=== PATIENT | female | born 1995 | race Two or more races ===

== ENCOUNTER 2017-07-24 10:38 | Emergency (ER) | payer SELFPAY, MEDICAID | END 2017-07-24 12:01 | disposition home or self-care (01) | LOC: ER 10:38 | DX: O26.891 Other specified pregnancy related conditions, first trimester (principal); M54.9 Dorsalgia, unspecified; M54.2 Cervicalgia; Z3A.01 Less than 8 weeks gestation of pregnancy | CPT/HCPCS: 99281 ==

== ENCOUNTER 2017-09-09 21:25 | Emergency (ER) | payer OTHER ==
[2017-09-09 21:58] LABS: URINE HCG POC HCG POSITIVE (Negative)
[2017-09-09 22:46] LABS: ADD MAN DIFF? NO
[2017-09-09 22:48] LABS: BASO % 0 % (0-3); EOS % 0 % (0-3); HEMATOCRIT 38.2 % (36.0-47.0); HEMOGLOBIN 13.2 g/dL (12.0-15.5); LYMPH % 21 % (24-48); MEAN CORPUSCULAR HEMOGLOBIN 31 pg (25-35); MEAN CORPUSCULAR HGB CONC 35 g/dL (31-37); MEAN CORPUSCULAR VOLUME 89 fL (79-100); MONO # 0.6 x10^3/uL (0.0-1.1); MONO % 6 % (0-9); NEUT # 6.7 x10^3uL (1.8-7.7); NEUT % 72 % (31-73); PLATELET COUNT 277 x10^3/uL (140-400); RED BLOOD COUNT 4.29 x10^6/uL (3.50-5.40); RED CELL DISTRIBUTION WIDTH 14.2 % (11.5-14.5); WHITE BLOOD COUNT 9.3 x10^3/uL (4.0-11.0)
[2017-09-09 22:49] LABS: BILIRUBIN,URINE NEGATIVE (NEG); CLARITY,URINE CLOUDY; COLOR,URINE YELLOW; GLUCOSE,URINE NEGATIVE (NEG); NITRITE,URINE NEGATIVE (NEG); PROTEIN,URINE NEGATIVE (NEG-TRACE)
[2017-09-09 22:57] LABS: BACTERIA,URINE MANY /HPF (0-FEW); RBC,URINE 0 /HPF (0-2); SQUAMOUS EPITHELIAL CELL,UR MANY /LPF
[2017-09-09 23:02] LABS: ANION GAP 14 (6-14); BLOOD UREA NITROGEN 10 mg/dL (7-20); BUN/CREATININE RATIO 20 (6-20); CALCIUM 8.9 mg/dL (8.5-10.1); CARBON DIOXIDE 22 mmol/L (21-32); CHLORIDE 103 mmol/L (98-107); CREATININE 0.5 mg/dL (0.6-1.0); GFR 154.3; GLUCOSE 87 mg/dL (70-99); POTASSIUM 3.2 mmol/L (3.5-5.1); SODIUM 139 mmol/L (136-145)
[2017-09-09] MEDS: IV NORMAL SALINE 1000ML BAG 1,000 ML IV (23:05)
[2017-09-09] MEDS: ONDANSETRON PF 4 MG/2 ML VIAL. IV (23:05)
[2017-09-09 23:07] LABS: ALBUMIN 3.6 g/dL (3.4-5.0); ALBUMIN/GLOBULIN RATIO 0.8 (1.0-1.7); ALK PHOS 65 U/L (46-116); ALT (SGPT) 15 U/L (14-59); AST (SGOT) 10 U/L (15-37); TOTAL BILIRUBIN 0.6 mg/dL (0.2-1.0); TOTAL PROTEIN 8.3 g/dL (6.4-8.2)
[2017-09-09] MEDS: POTASSIUM CHLORIDE 20 MEQ TABLET.ER. PO (23:48)
[2017-09-09] MEDS: ACETAMINOPHEN 500 MG TABLET PO (23:49)
== END 2017-09-09 23:50 | disposition home or self-care (01) ==
LOC: ER 23:50
DX: O99.281 Endocrine, nutritional and metabolic diseases complicating pregnancy, first trimester (principal); O23.41 Unspecified infection of urinary tract in pregnancy, first trimester; R42 Dizziness and giddiness; E86.0 Dehydration; Z3A.13 13 weeks gestation of pregnancy
CPT/HCPCS: 36415; 80053; 81001; 81025; 85025; 87086; 96361; 96374; 99284; J2405; J7030

== ENCOUNTER 2018-08-06 02:32 | Emergency (ER) | payer SELFPAY ==
[~2018-08-06] VITALS: Ht 162.6 cm; Wt 99.8 kg
[~2018-08-06 02:32] MED LIST: CEPH500T PO; IBUP-1060 PO; NAPR-514 PO; OXYC1TAB15 PO; PNV1TABL25 PO; SULF1TAB24 PO
[2018-08-06 02:45] VITALS: BP 112/69
[2018-08-07] MEDS ORDERED: NEOM10DR32 RIGHT EAR (10:26)
== END 2018-08-06 04:22 | disposition left against medical advice (07) ==
LOC: ER 02:32
DX: H92.01 Otalgia, right ear (principal); Z53.21 Procedure and treatment not carried out due to patient leaving prior to being seen by health care provider

== ENCOUNTER 2018-08-07 09:27 | Emergency (ER) | payer SELFPAY ==
[~2018-08-07] VITALS: Ht 160 cm; Wt 97.5 kg
[2018-08-07 09:37] VITALS: BP 116/65
--- NOTE | 2018-08-07 10:01 | PHYS DOC ---
Past Medical History Past Medical History: No Pertinent History Past Surgical History: Alcohol Use: None Drug Use: None Adult General Chief Complaint Chief Complaint: EARACHE/EAR PAIN HPI HPI Patient is a 22 year old female who presents with right ear pain. The pain is located in her right ear and started a few days ago. She describes it as a throbbing sensation. She attempted to vinegar on a cottonball to relieve her ear pain with no success. Chewing makes her pain worse. Improves her pain. She denies any fever, chills, sinus pressure, headache, ear drainage, or hearing loss. Review of Systems Review of Systems Constitutional: Denies fever or chills Eyes: Denies change in visual acuity, redness, or eye pain HENT: Reports right ear pain. Denies nasal congestion or sore throat Respiratory: Denies cough or shortness of breath Cardiovascular: Denies chest pain or palpitations. GI: Denies abdominal pain, nausea, vomiting. : Denies dysuria or hematuria Musculoskeletal: Denies back pain or joint pain Integument: Denies rash or skin lesions Neurologic: Denies headache or focal weakness Complete systems were reviewed and found to be within normal limits, except as documented in this note. Current Medications Current Medications Current Medications Medications (Trade) Dose Ordered Sig/Franklin Start Time Stop Time Status Last Admin Dose Admin Ibuprofen (Motrin) 600 mg 1X ONCE 08/07/18 10:30 08/07/18 10:31 UNV Allergies Allergies Allergies Coded Allergies Type Severity Reaction Last Updated Verified No Known Drug Allergies 05/17/14 No Physical Exam Physical Exam Constitutional: Well developed, well nourished, no acute distress. HENT: Normocephalic, atraumatic, right external ear erythematous and inflamed, tympanic membrane clear bilaterally, no mastoid tenderness, no tooth pain or oral abscess, no tmj pain. Eyes: EOMI, conjunctiva normal. Neck: Normal range of motion, no tenderness, supple, no stridor. Cardiovascular:Heart rate regular rhythm, no murmur Lungs & Thorax: Bilateral breath sounds clear to auscultation Abdomen: Bowel sounds normal, soft, no tenderness. Back: No tenderness, no CVA tenderness. Extremities: No cyanosis, no clubbing, no edema. Neurologic: Alert and oriented X 3, normal motor function,no focal deficits noted. Psychologic: Affect normal, mood normal. Current Patient Data Vital Signs Vital Signs Date Time Temp Pulse Resp B/P (MAP) Pulse Ox O2 Delivery O2 Flow Rate FiO2 08/07/18 09:37 98.6 90 16 116/65 (82) 99 Room Air 98.6 EKG EKG [] Radiology/Procedures Radiology/Procedures [] Course & Med Decision Making Course & Med Decision Making 22-year-old female presents emergency Department with right ear pain. Patient states pain started a few days ago. She denies any drainage or discharge from the ear. She denies any trauma to the ear. On exam right external ear was inflamed and tender. Symptomatic treatment provided with interval improvement. Patient stable for discharge with outpatient follow-up with PCP. Discussed findings and plan with patient and family, who acknowledge understanding and agreement. Dragon Disclaimer Dragon Disclaimer This electronic medical record was generated, in whole or in part, using a voice recognition dictation system. Departure Departure Impression: Primary Impression: Otitis externa Disposition: HOME, SELF-CARE Condition: STABLE Referrals: NO PCP (PCP) Patient Instructions: Otitis Externa, [id number] Additional Instructions: Take ibuprofen and Tylenol as needed for pain. Scripts Neomycin/Polymyxin B Sulf/Hc ([id number] EAR SUSP) 10 Ml Drops.susp 4 DROP RIGHT EAR TID for 7 Days, #10 ML Prov: DESHAUN OSORIO DO 08/07/18 Problem Qualifiers Primary Impression: Otitis externa Otitis externa type: unspecified type Chronicity: acute Laterality: right Qualified Codes: H60.501 - Unspecified acute noninfective otitis externa, right ear DESHAUN OSORIO DO Aug 07, 2018 10:01
[2018-08-07] MEDS ORDERED: NEOM10DR32 RIGHT EAR (10:26)
[2018-08-07] MEDS ORDERED: IBUPROFEN 200 MG TABLET. PO ONE (10:30)
== END 2018-08-07 10:49 | disposition home or self-care (01) ==
LOC: ER 09:27
DX: H60.501 Unspecified acute noninfective otitis externa, right ear (principal); Z98.890 Other specified postprocedural states
CPT/HCPCS: 99283

== ENCOUNTER 2018-12-13 20:39 | Emergency (ER) | payer OTHER ==
[~2018-12-13] VITALS: Ht 157.5 cm; Wt 97.5 kg
[~2018-12-13 20:39] MED LIST changes: +NEOM10DR32 RIGHT EAR
[2018-12-13 21:13] VITALS: BP 116/68
[2018-12-13 21:43] LABS: BASO # 0.1 x10^3/uL (0.0-0.2); BASO % 1 % (0-3); EOS % 0 % (0-3); HEMATOCRIT 36.3 % (36.0-47.0); HEMOGLOBIN 12.2 g/dL (12.0-15.5); LYMPH # 1.4 x10^3/uL (1.0-4.8); LYMPH % 12 % (24-48); MEAN CORPUSCULAR HEMOGLOBIN 28 pg (25-35); MEAN CORPUSCULAR HGB CONC 34 g/dL (31-37); MEAN CORPUSCULAR VOLUME 83 fL (79-100); MONO # 0.7 x10^3/uL (0.0-1.1); MONO % 6 % (0-9); NEUT # 9.6 x10^3/uL (1.8-7.7); NEUT % 82 % (31-73); PLATELET COUNT 318 x10^3/uL (140-400); RED BLOOD COUNT 4.37 x10^6/uL (3.50-5.40); RED CELL DISTRIBUTION WIDTH 16.2 % (11.5-14.5); WHITE BLOOD COUNT 11.8 x10^3/uL (4.0-11.0)
[2018-12-13] MEDS ORDERED: ACETAMINOPHEN 500 MG TABLET PO ONE (21:45)
[2018-12-13 21:54] LABS: CALCIUM 9.4 mg/dL (8.5-10.1); CREATININE 0.7 mg/dL (0.6-1.0); GFR 103.7
[2018-12-13 22:00] LABS: ALBUMIN 3.8 g/dL (3.4-5.0); ALBUMIN/GLOBULIN RATIO 0.9 (1.0-1.7); TOTAL BILIRUBIN 0.4 mg/dL (0.2-1.0); TOTAL PROTEIN 8.2 g/dL (6.4-8.2)
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
== END 2018-12-14 00:06 | disposition home or self-care (01) ==
LOC: EEVIPCON 20:39 → ER 20:39
DX: O9A.311 Physical abuse complicating pregnancy, first trimester (principal); S39.91XA Unspecified injury of abdomen, initial encounter; S29.9XXA Unspecified injury of thorax, initial encounter; Z3A.01 Less than 8 weeks gestation of pregnancy; Y04.2XXA Assault by strike against or bumped into by another person, initial encounter; Y93.89 Activity, other specified; Y92.89 Other specified places as the place of occurrence of the external cause; Y99.8 Other external cause status
CPT/HCPCS: 36415; 71045; 76801; 76817; 80053; 81025; 84702; 85025; 99285-25

== ENCOUNTER 2019-02-07 22:00 | Emergency (ER) | payer OTHER ==
[~2019-02-07] VITALS: Ht 160 cm; Wt 95.3 kg
[2019-02-07 22:07] VITALS: BP 128/60
--- NOTE | 2019-02-07 22:51 | PHYS DOC ---
Past Medical History Past Medical History: No Pertinent History Past Surgical History: Additional Past Surgical Histo: X4 Alcohol Use: None Drug Use: None Adult General Chief Complaint Chief Complaint: MECHANICAL FALL HPI HPI 23-year-old female presents to the emergency department with complaints of a fall. Patient is , 14 week . She states she slipped on some water falling on her abdomen. She denies any vaginal bleeding, no leakage of fluid. She points of abdominal pain. She states she's had fluttering in the past and that fluttering is attributed movement has been decreased since her fall. Patient denies any headache, visual changes, chest pain, shortness of breath. She denies any loss of consciousness. Nothing makes symptoms worse, nothing makes symptoms better Review of Systems Review of Systems Constitutional: Denies fever or chills [] Respiratory: Denies cough or shortness of breath [] Cardiovascular: No additional information not addressed in HPI [] GI: + abdominal pain, no nausea, vomiting, bloody stools or diarrhea [] : no vaginal dc or bleeding Musculoskeletal: Denies back pain or joint pain [] Integument: Denies rash or skin lesions [] Neurologic: Denies headache, focal weakness or sensory changes [] All other systems were reviewed and found to be within normal limits, except as documented in this note. Allergies Allergies Allergies Coded Allergies Type Severity Reaction Last Updated Verified No Known Drug Allergies 12/13/18 No Physical Exam Physical Exam Constitutional: Well developed, well nourished, no acute distress, non-toxic appearance. [] HENT: Normocephalic, atraumatic, bilateral external ears normal, oropharynx moist, no oral exudates, nose normal. [] Eyes: PERRLA, EOMI, conjunctiva normal, no discharge. [] Neck: Normal range of motion, no tenderness, supple, no stridor. [] Cardiovascular:Heart rate regular rhythm, no murmur [] Lungs & Thorax: Bilateral breath sounds clear to auscultation [] Abdomen: Bowel sounds normal, soft, no tenderness, no masses, no pulsatile masses. [] Skin: Warm, dry, no erythema, no rash. [] Back: No tenderness, no CVA tenderness. [] Extremities: No tenderness, no edema. [] Neurologic: Alert and oriented X 3, no focal deficits noted. [] Psychologic: Affect normal, judgement normal, mood normal. [] Current Patient Data Vital Signs Vital Signs Date Time Temp Pulse Resp B/P (MAP) Pulse Ox O2 Delivery O2 Flow Rate FiO2 02/07/19 22:07 98.4 77 16 128/60 (82) 98 Room Air 98.4 EKG EKG [] Radiology/Procedures Radiology/Procedures [facility] [address] [place] [address] IMAGING REPORT Signed PATIENT: CELIA MARCELO BACCOUNT: [id number] : 1995 LOCATION: ER AGE: 23 SEX: F EXAM STATUS: REG ER ORD. PHYSICIAN: MAILE MENEZES MD REASON: 14 week , fall, decreased FM PROCEDURE: PREG MORE THAN OR EQ TO 14 WKS Obstetric ultrasound less than 14 weeks: Reason for examination: 14 weeks . Fall with decreased motion. Transabdominal ultrasound examination of the pelvis was performed. Cervix is normal in length 5.3 cm and appears to be closed. The adnexal structures were not well visualized. Single viable intrauterine gestation is present with motion and cardiac activity present. Cardiac rate is 140 bpm. The fetus is in breech presentation at this time. Placenta appears to be developing posterior. Adequate amniotic fluid appears be present. Biparietal diameter 2.96 cm corresponding to gestational age of 15 weeks 3 days. Head circumference 11.26 cm corresponding to gestational age of 15 weeks 3 days. Abdominal circumference 8.94 cm corresponding to gestational age of 15 weeks 1 day. Femur length 1.85 cm corresponding to gestational age of 15 weeks 3 days. Head circumference to abdominal circumference ratio is 1.26. Mean gestational age is estimated at 15 weeks 3 days with estimated date of confinement of 07/29/2019. IMPRESSION: Single viable intrauterine gestation with mean gestational age estimated at 15 weeks 3 days and estimated date of confinement of 07/29/2019. motion and cardiac activity were present with a cardiac rate of 140 bpm. Electronically signed by: Katie Pak MD (02/08/2019 12:10 AM) [facility] DICTATED and SIGNED BY: KATIE PAK MD DATE: 02/08/19 0010 [] Course & Med Decision Making Course & Med Decision Making Pertinent Labs and Imaging studies reviewed. (See chart for details) []23-year-old female presents to the emergency department with complaints of a fall. Patient is , 14 week . She states she slipped on some water falling on her abdomen. She denies any vaginal bleeding, no leakage of fluid. She points of abdominal pain. She states she's had fluttering in the past and that fluttering is attributed movement has been decreased since her fall. Patient denies any headache, visual changes, chest pain, shortness of breath. She denies any loss of consciousness. Nothing makes symptoms worse, nothing makes symptoms better Unable to obtain FHTs given age of US obtained - reviewed, IUP with FHT 140's Discussed with patient, plan for dc and follow up with primary OB Terra Disclaimer Dragon Disclaimer This electronic medical record was generated, in whole or in part, using a voice recognition dictation system. Departure Departure Impression: Primary Impression: Fall Additional Impression: Disposition: 01 HOME, SELF-CARE Condition: STABLE Referrals: NO PCP (PCP) Patient Instructions: Abdominal Pain During , [id number] Additional Instructions: Recommend follow up with PCP 3 - 5 days Return to the ER with worsening symptoms, intractable pain, fever, altered mental status Tylenol as needed for pain Follow up with OB as scheduled Problem Qualifiers Primary Impression: Fall Encounter type: initial encounter Qualified Codes: W19.XXXA - Unspecified fall, initial encounter Additional Impression: Weeks of gestation: 14 weeks Qualified Codes: Z3A.14 - 14 weeks gestation of MAILE MENEZES MD Feb 07, 2019 22:51
--- NOTE | 2019-02-08 00:13 | RAD ---
Obstetric ultrasound less than 14 weeks: Reason for examination: 14 weeks . Fall with decreased motion. Transabdominal ultrasound examination of the pelvis was performed. Cervix is normal in length 5.3 cm and appears to be closed. The adnexal structures were not well visualized. Single viable intrauterine gestation is present with motion and cardiac activity present. Cardiac rate is 140 bpm. The fetus is in breech presentation at this time. Placenta appears to be developing posterior. Adequate amniotic fluid appears be present. Biparietal diameter 2.96 cm corresponding to gestational age of 15 weeks 3 days. Head circumference 11.26 cm corresponding to gestational age of 15 weeks 3 days. Abdominal circumference 8.94 cm corresponding to gestational age of 15 weeks 1 day. Femur length 1.85 cm corresponding to gestational age of 15 weeks 3 days. Head circumference to abdominal circumference ratio is 1.26. Mean gestational age is estimated at 15 weeks 3 days with estimated date of confinement of 07/29/2019. IMPRESSION: Single viable intrauterine gestation with mean gestational age estimated at 15 weeks 3 days and estimated date of confinement of 07/29/2019. motion and cardiac activity were present with a cardiac rate of 140 bpm. Electronically signed by: Katie Flores MD (02/08/2019 12:10 AM) [facility]
== END 2019-02-08 00:48 | disposition home or self-care (01) ==
LOC: ER 22:00
DX: O9A.212 Injury, poisoning and certain other consequences of external causes complicating pregnancy, second trimester (principal); R10.9 Unspecified abdominal pain; Z98.890 Other specified postprocedural states; Z3A.15 15 weeks gestation of pregnancy; W01.0XXA Fall on same level from slipping, tripping and stumbling without subsequent striking against object, initial encounter; Y93.89 Activity, other specified; Y92.89 Other specified places as the place of occurrence of the external cause; Y99.8 Other external cause status
CPT/HCPCS: 76805; 99284

== ENCOUNTER 2020-11-03 16:58 | Emergency (ER) | payer OTHER ==
[~2020-11-03] VITALS: Ht 165.1 cm; Wt 103.6 kg
[2020-11-03 18:03] VITALS: BP 130/76
--- NOTE | 2020-11-03 18:43 | PHYS DOC ---
Past Medical History Past Medical History: No Pertinent History (ADRIANA BLACKWELL HOUSE STEWARD/STEWARDESS) Past Surgical History: Additional Past Surgical Histo: X4 (ADRIANA BLACKWELL APRN) Smoking Status: Never Smoker Alcohol Use: None Drug Use: None (ADRIANA BLACKWELL APRN) General Adult EDM: Chief Complaint: UPPER EXTREMITY INJURY HPI: HPI: Patient is a 25 year old female who presents with patient states today she accidentally slammed her right hand into the car door. She complains of right thumb and right palm of hand pain. Patient has limited range of motion in the thumb. She denies numbness or tingling. She has a history of x4. Rates her pain a aching 7 out of 10. (ADRIANA BLACKWELL HOUSE STEWARD/STEWARDESS) Review of Systems: Review of Systems: Constitutional: Denies fever or chills. [] Eyes: Denies change in visual acuity. [] HENT: Denies nasal congestion or sore throat. [] Respiratory: Denies cough or shortness of breath. [] Cardiovascular: Denies chest pain or edema. [] GI: Denies abdominal pain, nausea, vomiting, bloody stools or diarrhea. [] : Denies dysuria. [] Musculoskeletal: Denies back pain or +Right hand joint pain. +Right thumb pain[] Integument: Denies rash. [] Neurologic: Denies headache, focal weakness or sensory changes. [] Endocrine: Denies polyuria or polydipsia. [] Lymphatic: Denies swollen glands. [] Psychiatric: Denies depression or anxiety. [] (ADRIANA BLACKWELL HOUSE STEWARD/STEWARDESS) Heart Score: C/O Chest Pain: No Risk Factors: Risk Factors: DM, Current or recent (<one month) smoker, HTN, HLP, family history of CAD, obesity. Risk Scores: Score 0 - 3: 2.5% MACE over next 6 weeks - Discharge Home Score 4 - 6: 20.3% MACE over next 6 weeks - Admit for Clinical Observation Score 7 - 10: 72.7% MACE over next 6 weeks - Early Invasive Strategies (ADRIANA BLACKWELL APRN) Allergies: Allergies: Allergies Coded Allergies Type Severity Reaction Last Updated Verified No Known Drug Allergies 12/13/18 No (ADRIANA BLACKWELL APRN) Physical Exam: PE: Constitutional: Well developed, well nourished, no acute distress, non-toxic appearance. [] HENT: Normocephalic, atraumatic, bilateral external ears normal, oropharynx moist, no oral exudates, nose normal. [] Eyes: PERRLA, EOMI, conjunctiva normal, no discharge. [] Neck: Normal range of motion, no tenderness, supple, no stridor. [] Cardiovascular:Heart rate regular rhythm, no murmur [] Lungs & Thorax: Bilateral breath sounds clear to auscultation [] Abdomen: Bowel sounds normal, soft, no tenderness, no masses, no pulsatile masses. [] Skin: Warm, dry, no erythema, no rash. [] Back: No tenderness, no CVA tenderness. [] Extremities: Right thumb tenderness, no cyanosis, no clubbing, right thumb ROM not intact, no edema. [] Neurologic: Alert and oriented X 3, normal motor function, normal sensory function, no focal deficits noted. [] Psychologic: Affect normal, judgement normal, mood normal. [] (ADRIANA BLACKWELL APRN) Current Patient Data: Vital Signs: Vital Signs Date Time Temp Pulse Resp B/P (MAP) Pulse Ox O2 Delivery O2 Flow Rate FiO2 11/03/20 18:03 98.1 76 16 130/76 (82) 99 Room Air 98.1 (ADRIANA BLACKWELL APRN) EKG: EKG: [] (ADRIANA BLACKWELL APRN) Radiology/Procedures: Radiology/Procedures: [] Impression: [facility] [address] [place], [place] [id number] IMAGING REPORT Signed PATIENT: CELIA MARCELO BACCOUNT: [id number] : 1995 LOCATION: ER AGE: 25 SEX: F EXAM STATUS: REG ER ORD. PHYSICIAN: ADRIANA BLACKWELL APRN REASON: pain after slammin thumb and hand in car door PROCEDURE: HAND RIGHT 3V XR HAND_RIGHT 3 VIEWS 11/03/2020 6:37 PM INDICATION: Pain after slamming thumb in car door COMPARISON: None available. TECHNIQUE: 3 views the right hand are provided. FINDINGS/ IMPRESSION: There is no acute fracture or dislocation. Joint spaces are maintained. Bone mineralization is within normal limits. Regional soft tissues are within normal limits. There is no soft tissue gas or osseous erosion. No radiopaque foreign body. Electronically signed by: Shanon Zhou MD (11/03/2020 7:01 PM) [facility] DICTATED and SIGNED BY: SHANON ZHOU MD DATE: 11/03/20 [id number] (ADRIANA BLACKWELL APRN) Course & Med Decision Making: Course & Med Decision Making Pertinent Labs and Imaging studies reviewed. (See chart for details) See HPI. Alert and oriented x4. Ambulatory with steady gait. Speaks in full clear sentences. Radial pulse strong are present. Full sensations. She has very limited range of motion to the right thumb due to pain. There is no bruising or deformity. No laceration or abrasions. Cap refill less than 2 seconds. Skin pink warm and dry. X-ray shows no acute findings. Patient is placed in a aluminum splint. [] (ADRIANA BLACKWELL APRN) Course & Med Decision Making Patients Care and treatment plan provided by ER Nurse Practitioner. I was available for consult. Patient's chart reviewed. (NATHAN KEATING DO) Terra Disclaimer: Terra Disclaimer: This electronic medical record was generated, in whole or in part, using a voice recognition dictation system. (ADRIANA BLACKWELL APRN) Departure Departure Impression: Primary Impression: Hand pain, right Additional Impression: Thumb pain Qualified Codes: M79.644 - Pain in right finger(s) Disposition: HOME / SELF CARE / HOMELESS Condition: STABLE Referrals: NO PCP (PCP) Patient Instructions: Crush Injury, Fingers or Toes Additional Instructions: Follow-up with [facility] for your time. Use ice and elevation. Take ibuprofen for your pain. Scripts Ibuprofen (IBUPROFEN) 600 Mg Tablet 600 MG PO PRN Q6HRS PRN for INFLAMMATION, #20 TAB Prov: ADRIANA BLACKWELL APRN 11/03/20 ADRIANA BLACKWELL APRN Nov 03, 2020 18:43 NATHAN KEATING DO Nov 04, 2020 03:55
--- NOTE | 2020-11-03 19:03 | RAD ---
XR HAND_RIGHT 3 VIEWS 11/03/2020 6:37 PM INDICATION: Pain after slamming thumb in car door COMPARISON: None available. TECHNIQUE: 3 views the right hand are provided. FINDINGS/ IMPRESSION: There is no acute fracture or dislocation. Joint spaces are maintained. Bone mineralization is within normal limits. Regional soft tissues are within normal limits. There is no soft tissue gas or osseou s erosion. No radiopaque foreign body. Electronically signed by: Shantell Hayden MD (11/03/2020 7:01 PM) [facility]
[2020-11-03] MEDS ORDERED: IBUP-1007 PO (19:14)
== END 2020-11-03 19:15 | disposition home or self-care (01) ==
LOC: ER 16:58
DX: M79.644 Pain in right finger(s) (principal); M79.641 Pain in right hand; G89.11 Acute pain due to trauma; W23.0XXA Caught, crushed, jammed, or pinched between moving objects, initial encounter; Y93.89 Activity, other specified; Y92.89 Other specified places as the place of occurrence of the external cause; Y99.8 Other external cause status
CPT/HCPCS: 29130; 73130; 99283